=== PATIENT | female | born 1940 | race Caucasian/White ===

== ENCOUNTER 2017-09-07 16:09 | Emergency (ER) | payer MEDICARE, OTHER ==
--- NOTE | 2017-09-07 17:59 | ER Document Report ---
ED Medical Screen (RME) - General Chief Complaint: Fall Injury Stated Complaint: FALL, PAIN ALL OVER Time Seen by Provider: 09/07/17 17:54 Mode of Arrival: Ambulatory Information source: Patient Notes: 77-year-old female presents after a fall. Patient fell sometime last night was on the floor for approximately 12 hours until found by family member today. Patient denies any concerns except for shoulder pain I have greeted and performed a rapid initial assessment of this patient. A comprehensive ED assessment and evaluation of the patient, analysis of test results and completion of the medical decision making process will be conducted by additional ED providers. PHYSICAL EXAMINATION: GENERAL: Morbidly obese female in wheelchair HEAD: Atraumatic, normocephalic. EYES: Pupils equal round extraocular movements intact, conjunctiva are normal. Contusion around right orbit ENT: Nares patent NECK: Normal range of motion LUNGS: No respiratory distress NEUROLOGICAL: Normal speech, normal gait. PSYCH: Normal mood, normal affect. SKIN: Warm, Dry, normal turgor, no rashes or lesions noted. TRAVEL OUTSIDE OF THE [place] IN LAST 30 DAYS: No - Related Data Allergies/Adverse Reactions: No Known Allergies Allergy (Unverified 09/07/17 16:28) Physical Exam - Vital signs Vitals: Temp Pulse Resp BP Pulse Ox 98.0 F 55 L 20 111/64 94 09/07/17 16:57 09/07/17 16:57 09/07/17 16:57 09/07/17 16:57 09/07/17 16:57 Course - Vital Signs Vital signs: Temp Pulse Resp BP Pulse Ox 98.0 F 55 L 20 111/64 94 09/07/17 16:57 09/07/17 16:57 09/07/17 16:57 09/07/17 16:57 09/07/17 16:57
--- NOTE | 2017-09-07 18:54 | RADIOLOGY REPORT (SQ) ---
EXAM DESCRIPTION: CT FACIAL AREA WITHOUT COMPLETED DATE/TIME: 09/07/2017 6:41 pm REASON FOR STUDY: fall COMPARISON: None. TECHNIQUE: Noncontrasted images through the facial bones and orbits windowed for bone and soft tissu e. Additional coronal and sagittal reconstructed images reviewed. All images stored on PACS. All CT scanners at this facility use dose modulation, iterative reconstruction, and/or weight based d osing when appropriate to reduce radiation dose to as low as reasonably achievable (ALARA). [facility]: Dose Right [facility]: CareDose [facility]: Dose Right [facility]: Teradose 4D [facility]: [employer] RADIATION DOSE: CT Rad equipment meets quality standard of care and radiation dose reduction techniq ues were employed. CTDIvol: 30.4 mGy. DLP: 636 mGy-cm. mGy. LIMITATIONS: None. FINDINGS: FACIAL BONES: No fracture or bone lesion. ORBITS: Intact. No fracture. Symmetric intact globes and retroorbital soft tissues. PARANASAL SINUSES: Clear. No significant mucosal thickening, mass or fluid. No nasal polyps. Maxill manolo sinus outlets are patent. SOFT TISSUES: No mass or edema. INFERIOR BRAIN: Limited view. No acute findings. OTHER: No other significant finding. IMPRESSION: NO ACUTE FINDINGS. TECHNICAL DOCUMENTATION: JOB ID: [id number] Quality ID # [id number]: Final reports with documentation of one or more dose reduction techniques (e.g., Au tomated exposure control, adjustment of the mA and/or kV according to patient size, use of iterative reconstruction technique) 2010 [employer]- All Rights Reserved Reading location - IP/workstation name: [email or web address]
[2017-09-07 19:02] LABS: ABSOLUTE BASOPHILS # (AUTO) 0.1 10^3/uL (0.0-0.2); ABSOLUTE MONOCYTES (AUTO) 0.9 10^3/uL (0.1-1.4); ABSOLUTE NEUT (AUTO) 11.5 10^3/uL (1.7-8.2); BASOPHILS % (AUTO) 0.6 % (0-2); EOSINOPHILS % (AUTO) 0.1 % (0-6); HEMATOCRIT 48.6 % (36.0-47.0); HEMOGLOBIN 16.5 g/dL (12.0-15.5); LYMPHOCYTES % (AUTO) 13.9 % (13-45); MEAN CORPUSCULAR HEMOGLOBIN 34.1 pg (27.0-33.4); MEAN CORPUSCULAR VOLUME 100 fl (80-97); MONOCYTES % (AUTO) 6.5 % (3-13); RED BLOOD COUNT 4.84 10^6/uL (3.72-5.28); SEGMENTED NEUTROPHILS % (AUTO) 78.9 % (42-78); TOTAL CELLS COUNTED % (AUTO) 100 %; WHITE BLOOD COUNT 14.5 10^3/uL (4.0-10.5)
[2017-09-07 19:10] LABS: PLATELET COUNT 303 10^3/uL (150-450)
--- NOTE | 2017-09-07 19:18 | RADIOLOGY REPORT (SQ) ---
EXAM DESCRIPTION: SHOULDER RIGHT 2 OR MORE VIEWS COMPLETED DATE/TIME: 09/07/2017 7:02 pm REASON FOR STUDY: fall COMPARISON: None. NUMBER OF VIEWS: Three views. TECHNIQUE: Internal rotation, external rotation, and Y view images acquired of the right shoulder. LIMITATIONS: None. FINDINGS: MINERALIZATION: Normal. BONES: No acute fracture or dislocation. No worrisome bone lesions. 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 VISUALIZED LUNGS AND RIBS: No pneumothorax. No rib fracture. SOFT TISSUES: No radiopaque foreign body. OTHER: No other significant finding. IMPRESSION: DEGENERATIVE CHANGE ABOVE. NO RADIOGRAPHIC EVIDENCE OF ACUTE INJURY. TECHNICAL DOCUMENTATION: JOB ID: [id number] [employer]- All Rights Reserved Reading location - IP/workstation name: [email or web address]
--- NOTE | 2017-09-07 19:50 | ER Document Report ---
ED General - General Chief Complaint: Fall Injury Stated Complaint: FALL, PAIN ALL OVER Time Seen by Provider: 09/07/17 17:54 Mode of Arrival: Ambulatory Notes: History of present illness-77 years old female with obesity this morning tripped and fell on her right shoulder. And sustained a small abrasion over the right corner of the eye due to her eyeglasses. Denies any loss of consciousness currently has no headache neck pain neck stiffness.. Denies any fever chills or other constitutional symptoms. Denies any chest pain chest wall pain. Denies any left shoulder pain. Denies any pain over upper limbs Except for right shoulder denies any pain over lower limbs or injuries. Has chronic arthritis. REVIEW OF SYSTEMS: CONSTITUTIONAL : Denies fever, chills, or sweats. Denies recent illness. EENT: Denies eye, ear, throat, or mouth pain or symptoms. Denies nasal or sinus congestion or discharge. Denies throat, tongue, or mouth swelling or difficulty swallowing. CARDIOVASCULAR: Denies chest pain. Denies palpitations or racing or irregular heart beat. Denies ankle edema. RESPIRATORY: Denies cough, cold, or chest congestion. Denies shortness of breath, difficulty breathing, or wheezing. GASTROINTESTINAL: Denies abdominal pain or distention. Denies nausea, vomiting , or diarrhea. Denies blood in vomitus, stools, or per rectum. Denies black, tarry stools. Denies constipation. GENITOURINARY: Denies difficulty urinating, painful urination, burning, frequency, blood in urine, or discharge. FEMALE GENITOURINARY: Denies vaginal bleeding, heavy or abnormal periods, irregular periods. Denies vaginal discharge or odor. HEMATOLOGIC : Denies easy bruising or bleeding. LYMPHATIC: Denies swollen, enlarged glands. NEUROLOGICAL: Denies confusion or altered mental status. Denies passing out or loss of consciousness. Denies dizziness or lightheadedness. Denies headache. Denies weakness or paralysis or loss of use of either side. Denies problems with gait or speech. Denies sensory loss, numbness, or tingling. Denies seizures. PSYCHIATRIC: Denies anxiety or stress. Denies depression, suicidal ideation, or homicidal ideation. ALL OTHER SYSTEMS REVIEWED AND NEGATIVE. PHYSICAL EXAMINATION: GENERAL: Well-appearing, well-nourished and in no acute distress. Obese HEAD: Atraumatic, normocephalic. Minor abrasion over the right corner of the eye noted EYES: Pupils equal round and reactive to light, extraocular movements intact, conjunctiva are normal. ENT: Nares patent, oropharynx clear without exudates. Moist mucous membranes. NECK: Normal range of motion, supple without lymphadenopathy LUNGS: Breath sounds clear to auscultation bilaterally and equal. No wheezes rales or rhonchi. HEART: Regular rate and rhythm without murmurs ABDOMEN: Soft, nontender, nondistended abdomen. No guarding, no rebound. No masses appreciated. Female : deferred Musculoskeletal: Normal range of motion, no pitting or edema. No cyanosis. Right shoulder mild tenderness noted on palpation range of motion is limited due to pain. NEUROLOGICAL: Cranial nerves grossly intact. Normal speech, normal gait. Normal sensory, motor exams PSYCH: Normal mood, normal affect. SKIN: Warm, Dry, normal turgor, no rashes or lesions noted. Dictation was performed using [employer] voice recognition software TRAVEL OUTSIDE OF THE [place] IN LAST 30 DAYS: No - HPI Onset: This morning Onset/Duration: Sudden Severity: Mild Pain Level: 1 - Related Data Allergies/Adverse Reactions: No Known Allergies Allergy (Unverified 09/07/17 16:28) Past Medical History - General Information source: Patient - Social History Smoking Status: Current Every Day Smoker Chew tobacco use (# tins/day): No Frequency of alcohol use: Rare Drug Abuse: None Family History: Reviewed & Not Pertinent Patient has suicidal ideation: No Patient has homicidal ideation: No - Past Medical History Cardiac Medical History: Reports: Hx Hypercholesterolemia, Hx Hypertension Renal/ Medical History: Denies: Hx Peritoneal Dialysis GI Medical History: Reports: Hx Hiatal Hernia Musculoskeltal Medical History: Reports Hx Arthritis Past Surgical History: Reports: Hx Cholecystectomy, Hx Hysterectomy, Hx Mastectomy, Hx Orthopedic Surgery Review of Systems - Review of Systems Notes: As per history of complaint Physical Exam - Vital signs Vitals: Temp Pulse Resp BP Pulse Ox 98.0 F 55 L 20 111/64 94 09/07/17 16:57 09/07/17 16:57 09/07/17 16:57 09/07/17 16:57 09/07/17 16:57 Course - Vital Signs Vital signs: Temp Pulse Resp BP Pulse Ox 97.7 F 102 H 14 140/87 H 97 09/07/17 20:48 09/07/17 20:48 09/07/17 20:48 09/07/17 20:48 09/07/17 20:48 - Laboratory Result Diagrams: 09/07/17 18:30 09/07/17 19:30 Laboratory results interpreted by me: 09/07/17 09/07/17 18:30 19:30 WBC 14.5 H Hgb 16.5 H Hct 48.6 H MCV 100 H MCH 34.1 H Seg Neutrophils % 78.9 H Absolute Neutrophils 11.5 H Chloride 110 H Carbon Dioxide 19 L BUN 22 H Glucose 128 H Calcium 10.3 H AST 57 H Creatine Kinase 1115 H - Diagnostic Test Radiology reviewed: Reports reviewed - 1. CT of the facial bones reported by radiologist as normal 2. Right shoulder x-ray reported by radiologist as no fractures. Discharge - Discharge Clinical Impression: Right facial pain Fall Qualifiers: Encounter type: initial encounter Qualified Code(s): W19.XXXA - Unspecified fall, initial encounter Sprain of right shoulder Qualifiers: Encounter type: initial encounter Shoulder sprain type: unspecified sprain Qualified Code(s): S43.401A - Unspecified sprain of right shoulder joint, initial encounter Condition: Fair Disposition: HOME, SELF-CARE Instructions: Head Injury Precautions ([facility]), Shoulder Injury ([facility]) Prescriptions: Hydrocodone/Acetaminophen [King 5-325 mg Tablet] 1 tab PO BID #10 tablet
[2017-09-07 20:08] LABS: ALANINE AMINOTRANSFERASE 35 U/L (9-52); ALBUMIN 4.3 g/dL (3.5-5.0); ALKALINE PHOSPHATASE 70 U/L (38-126); ANION GAP 15 (5-19); ASPARTATE AMINO TRANSFERASE 57 U/L (14-36); BILIRUBIN,DIRECT 0.4 mg/dL (0.0-0.4); BILIRUBIN,TOTAL 0.6 mg/dL (0.2-1.3); BLOOD UREA NITROGEN 22 mg/dL (7-20); CALCIUM 10.3 mg/dL (8.4-10.2); CARBON DIOXIDE 19 mmol/L (22-30); CHLORIDE 110 mmol/L (98-107); CREATINE KINASE 1115 U/L (30-135); GLUCOSE 128 mg/dL (75-110); POTASSIUM 4.1 mmol/L (3.6-5.0); SODIUM 144.3 mmol/L (137-145); TOTAL PROTEIN 7.1 g/dL (6.3-8.2)
[2017-09-07] MEDS ORDERED: OXYCODONE-ACETAMINOPHEN 5-325 MG TABLET PO ONE (20:38)
[2017-09-07 20:52] VITALS: BP 140/87
== END 2017-09-07 20:51 | disposition home or self-care (01) ==
LOC: ER 16:09
DX: S43.401A Unspecified sprain of right shoulder joint, initial encounter (principal); S00.211A Abrasion of right eyelid and periocular area, initial encounter; R51 Headache; M79.1 Myalgia; I10 Essential (primary) hypertension; W01.0XXA Fall on same level from slipping, tripping and stumbling without subsequent striking against object, initial encounter; F17.200 Nicotine dependence, unspecified, uncomplicated
CPT/HCPCS: 99284; 36415; 82550; 85025; 80053; 73030; 70486; A9270